=== PATIENT | female | born 1985 | race Caucasian/White ===

== ENCOUNTER 2019-07-26 13:48 | Emergency (ER) | payer SELFPAY ==
[~2019-07-26] VITALS: Ht 182.9 cm; Wt 124.7 kg
[~2019-07-26 13:48] MED LIST: IBUP200C3 PO
[2019-07-26 13:56] VITALS: BP 154/101
[2019-07-26] MEDS ORDERED: KETOROLAC TROMETH 60MG/2ML VIAL IM ONE (15:00)
== END 2019-07-26 15:48 | disposition home or self-care (01) ==
LOC: ER 13:48
DX: S16.1XXA Strain of muscle, fascia and tendon at neck level, initial encounter (principal); M54.41 Lumbago with sciatica, right side; F17.210 Nicotine dependence, cigarettes, uncomplicated; X50.9XXA Other and unspecified overexertion or strenuous movements or postures, initial encounter; Y93.89 Activity, other specified; Y99.8 Other external cause status; Y92.89 Other specified places as the place of occurrence of the external cause
CPT/HCPCS: 72040; 96372; 99283; J1885